=== PATIENT | female | born 1950 | race Caucasian/White ===

== ENCOUNTER 2016-10-16 12:53 | Emergency (ER) | payer MEDICARE, BC ==
[2016-10-16 13:16] VITALS: BP 154/74
[2016-10-16] MEDS ORDERED: Ketorolac 30 MG/ML SDV IM ONE (13:32)
--- NOTE | 2016-10-16 14:05 | EDM.PDOC ---
ED HPI GENERAL MEDICAL PROBLEM - General Chief Complaint: Back Pain or Injury Stated Complaint: FELL Time Seen by Provider: 10/16/16 13:32 Source of Information: Reports: Patient History Limitations: Reports: No Limitations - History of Present Illness INITIAL COMMENTS - FREE TEXT/NARRATIVE: This 66 yo female patient reports to the ED with right sided lower back pain and right lower rib pain. The patient reports she was cleaning the windows when she fell off the ladder (3-4 steps up on the ladder). The patient reports she initially fell on the concrete then hit her right lower ribs on the steps of the deck. The patient reports increased pain with deep breathing and moving about. The patient has not taken anything for her symptoms prior to reporting to the ED. Onset: Today, Sudden Duration: Hour(s):, Constant Location: Reports: Chest (right lower ribs posterior), Back (right lower back) Quality: Reports: Ache, Sharp Severity: Severe Improves with: Reports: Rest Worsens with: Reports: Movement Context: Reports: Other (fall from ladder) Associated Symptoms: Reports: No Other Symptoms Right Middle Back Pain Score (Numeric/FACES): 4 - Related Data Allergies Allergy/AdvReac Type Severity Reaction Status Date / Time cephalexin Allergy Rash Verified 10/16/16 13:01 Iodinated Contrast- Oral and Allergy Rash Verified 10/16/16 13:01 IV Dye [Iodinated Contrast Media - IV Dye] Home Meds: Home Meds Aspirin [Ecotrin] 325 mg PO DAILY 11/09/15 [History] Insulin Glarg,Human.Rec.Analog [LantUS Solostar] 50 units SUBCUT DAILY 11/09/15 [History] Metoprolol Tartrate [Lopressor] 100 mg PO BID 11/09/15 [History] Ramipril [Altace] 5 mg PO DAILY 11/09/15 [History] S-Adenosylmethionine Sul Tosyl [Pavan-E] 200 mg PO DAILY 11/09/15 [History] metFORMIN [Glucophage] 500 mg PO BID 11/09/15 [History] Etanercept [Enbrel] 50 mg SQ WEEKLY 10/16/16 [History] Levomefolate/B6/B12/Algal Oil [Metanx Capsule] 1 each PO DAILY 10/16/16 [History ] Triamterene/Hydrochlorothiazid [Triamterene-HCTZ 37.5-25 MG] 1 each PO DAILY [History] amLODIPine/atorvaSTATin [Amlodipine-Atorvast 10-40 mg] 1 each PO DAILY 10/16/16 [History] Past Medical History HEENT History: Reports: Cataract, Impaired Vision, Other (See Below) Other HEENT History: WEARS GLASSES Cardiovascular History: Reports: High Cholesterol, Hypertension Gastrointestinal History: Reports: Chronic Diarrhea, Irritable Bowel Syndrome Genitourinary History: Reports: None [employer] History: Reports: Musculoskeletal History: Reports: Arthritis, Osteoarthritis, RA Other Musculoskeletal History: LEFT FOOT PAIN; LEFT KNEE PAIN; LEFT HAND PAIN; RIGHT ARM PAIN - ALL DUE TO ARTHRITIS Endocrine/Metabolic History: Reports: Diabetes, Type II Hematologic History: Reports: Iron Deficiency, Other (See Below) Other Hematologic History: hyperhomocysteinemia Oncologic (Cancer) History: Reports: None Dermatologic History: Reports: Psoriasis - Infectious Disease History Infectious Disease History: Reports: Chicken Pox, Mumps, Rubella, Shingles - Past Surgical History HEENT Surgical History: Reports: Cataract Surgery, Eye Surgery, Other (See Below ) Respiratory Surgical History: Reports: None GI Surgical History: Reports: EGD, Other (See Below) Female Surgical History: Reports: Hysterectomy Neurological Surgical History: Reports: None Oncologic Surgical History: Reports: None Dermatological Surgical History: Reports: None Social & Family History - Tobacco Use Smoking Status *Q: Never Smoker - Caffeine Use Caffeine Use: Reports: Coffee, Soda, Tea - Alcohol Use Days Per Week of Alcohol Use: 1 Number of Drinks Per Day: 1 Total Drinks Per Week: 1 - Recreational Drug Use Recreational Drug Use: No Drug Use in Last 12 Months: No ED ROS GENERAL - Review of Systems Review Of Systems: ROS reveals no pertinent complaints other than HPI. ED EXAM,LOWER BACK PAIN/INJURY - Physical Exam Exam: See Below Exam Limited By: No Limitations General Appearance: Alert, WD/WN, Moderate Distress Eye Exam: Bilateral Eye: EOMI, Normal Inspection, PERRL Ears: Normal External Exam, Normal Canal, Hearing Grossly Normal, Normal TMs Nose: Normal Inspection, Normal Mucosa, No Blood Throat/Mouth: Normal Inspection, Normal Lips, Normal Teeth, Normal Gums, Normal Oropharynx, Normal Voice, No Airway Compromise Head: Atraumatic, Normocephalic Neck: Normal Inspection, Supple, Non-Tender, Full Range of Motion Respiratory/Chest: No Respiratory Distress, Lungs Clear, Normal Breath Sounds, No Accessory Muscle Use, Other (tenderness to the right posterior lower ribs) Cardiovascular: Normal Peripheral Pulses, Regular Rate, Rhythm, No Edema, No Gallop, No JVD, No Murmur, No Rub GI/Abdominal: Normal Bowel Sounds, Soft, Non-Tender, No Organomegaly, No Distention, No Abnormal Bruit, No Mass (Female) Exam: Deferred Rectal (Female) Exam: Deferred Back Exam: Paraspinal Tenderness (right), Vertebral Tenderness (lower back) Extremities: Normal Inspection, Normal Range of Motion, Non-Tender, No Pedal Edema, Normal Capillary Refill Neurological: Alert, Normal Mood/Affect, Normal Dorsiflexion, CN II-XII Intact, Normal Plantar Flexion, Normal Gait, Normal Reflexes, No Motor/Sensory Deficits , Oriented x 3 Psychiatric: Normal Affect, Normal Mood Skin Exam: Warm, Dry, Intact, Normal Color, No Rash Lymphatic: No Adenopathy Course - Vital Signs Last Recorded V/S: Last Vital Signs Temp 36.9 C 10/16/16 13:13 Pulse 77 10/16/16 13:13 Resp 18 10/16/16 13:13 BP 154/74 H 10/16/16 13:13 Pulse Ox 99 10/16/16 13:13 - Orders/Labs/Meds Orders: Active Orders 24 hr Category Date Time Status Lumbar Spine 2 or 3V [CR] Urgent Exams 10/16/16 13:33 Ordered Ribs 2V w Chest Rt [CR] Urgent Exams 10/16/16 13:33 Ordered Meds: Medications Discontinued Medications Generic Name Dose Route Start Last Admin Trade Name Cherie PRN Reason Stop Dose Admin Ketorolac Tromethamine 60 mg 10/16/16 13:32 10/16/16 13:37 Toradol IM 10/16/16 13:33 60 mg ONETIME ONE Administration Departure - Departure Time of Disposition: 15:02 Disposition: Home, Self-Care 01 Condition: Fair Clinical Impression: Low back strain Qualifiers: Encounter type: initial encounter Qualified Code(s): S39.012A - Strain of muscle, fascia and tendon of lower back, initial encounter Contusion of lower back Qualifiers: Encounter type: initial encounter Qualified Code(s): S30.0XXA - Contusion of lower back and pelvis, initial encounter - Discharge Information Instructions: Muscle Strain, [id number], Back Injury Prevention, [id number] Forms: ED Department Discharge Care Plan Goals: The patient was advised of the examination and x-ray results during the visit. The patient was given an injection of Toradol (60 mg) while in the ED. The patient was discharged with scripts for 1) Toradol (10 mg) #20 to take 1 by mouth every 6 hours, 2) Flexeril (10 mg) #20 to take 1 by mouth at bedtime as needed and 3) Paige (5/325) #10 to take 1 by mouth every 6 hours as needed for pain. If the patient has any additional symptoms or concerns, the patient should follow-up with her primary care facility or return to the emergency department. - My Orders Last 24 Hours: My Active Orders 10/16/16 13:33 Lumbar Spine 2 or 3V [CR] Urgent Ribs 2V w Chest Rt [CR] Urgent - Assessment/Plan Last 24 Hours: My Active Orders 10/16/16 13:33 Lumbar Spine 2 or 3V [CR] Urgent Ribs 2V w Chest Rt [CR] Urgent
== END 2016-10-16 15:09 | disposition home or self-care (01) ==
LOC: DL.ED 12:53
DX: S39.012A Strain of muscle, fascia and tendon of lower back, initial encounter (principal); S30.0XXA Contusion of lower back and pelvis, initial encounter; H54.7 Unspecified visual loss; E78.00 Pure hypercholesterolemia, unspecified; I10 Essential (primary) hypertension; M06.9 Rheumatoid arthritis, unspecified; E11.9 Type 2 diabetes mellitus without complications; L40.9 Psoriasis, unspecified; Z90.710 Acquired absence of both cervix and uterus; Z88.1 Allergy status to other antibiotic agents; Z91.041 Radiographic dye allergy status; Z79.82 Long term (current) use of aspirin; Z79.4 Long term (current) use of insulin; Z79.84 Long term (current) use of oral hypoglycemic drugs; W11.XXXA Fall on and from ladder, initial encounter
CPT/HCPCS: 71101; 72100; 96372; 99283; J1885

== ENCOUNTER 2024-09-17 23:08 | Emergency (ER) | payer MEDICARE, BC ==
[2024-09-17] MEDS ORDERED: Sodium Chloride 0.9% 10 ML Syringe FLUSH PRN (23:32)
[2024-09-17 23:37] LABS: BASOPHILS PERCENT AUTO 0.3 % (0.0-1.0); EOSINOPHILS PERCENT AUTO 23.3 % (1.0-3.0); HEMATOCRIT 35.2 % (37.0-47.0); HEMOGLOBIN 11.5 g/dL (12.0-16.0); LYMPHOCYTES PERCENT AUTO 20.5 % (20.5-50.1); MEAN CORPUSCULAR HEMOGLOBIN 32.2 pg (27.0-34.0); MEAN CORPUSCULAR HGB CONC 32.7 g/dL (33.0-35.0); MEAN CORPUSCULAR VOLUME 98.6 fL (80-100); MONOCYTES PERCENT AUTO 20.8 % (2-8); NEUTROPHILS PERCENT AUTO 35.1 % (42.2-75.2); PLATELET COUNT,PLT 199 10^3/uL (150-450); RED BLOOD CELL COUNT 3.57 10^6/uL (4.2-5.4); WHITE BLOOD CELL COUNT,WBC 3.2 10^3/uL (5.0-10.0)
[2024-09-17] MEDS: Dextrose 5%-0.45% NaCl 1,000 ML IV SCH (23:51)
[2024-09-17 23:55] LABS: LACTIC ACID 0.6 mmol/L (0.4-2.0)
[2024-09-17 23:56] LABS: ALBUMIN 2.7 g/dL (3.4-5.0); ANION GAP 8.2 mEq/L (7-13); BILIRUBIN TOTAL 0.3 mg/dL (0.2-1.0); BUN/CREATININE RATIO 21.5 (No establ ref range); CALCIUM 9.1 mg/dL (8.5-10.1); CREATININE 0.93 mg/dL (0.55-1.02); EST CRCL DRUG DOSING (CG) 36.96 mL/min; POTASSIUM,K 3.2 mmol/L (3.5-5.1)
[2024-09-17 23:58] LABS: A/G RATIO 0.82
[2024-09-18 00:39] LABS: APPEARANCE,URINE CLEAR (CLEAR); BILIRUBIN,URINE NEGATIVE (NEGATIVE); COLOR,URINE LIGHT YELLOW (YELLOW); GLUCOSE,URINE NEGATIVE (NEGATIVE); KETONES,URINE NEGATIVE (NEGATIVE); LEUKOCYTE ESTERASE,URINE NEGATIVE (NEGATIVE); NITRITE,URINE NEGATIVE (NEGATIVE); OCCULT BLOOD,URINE NEGATIVE (NEGATIVE); PROTEIN,URINE NEGATIVE (NEGATIVE); UROBILINOGEN,URINE 0.2 mg/dL (0.2-1.0)
[2024-09-18] MEDS: 50% Dextrose in Water 50 ML Syringe IVPUSH ONE (00:39)
[2024-09-18 03:29] VITALS: BP 137/57; PULSE 61
[2024-09-18] MEDS: Potassium Chloride 10 MEQ Tab.ER PO ONE (03:53)
== END 2024-09-18 04:00 ==
LOC: DL.ED 23:08
DX: E11.649 Type 2 diabetes mellitus with hypoglycemia without coma (principal); R00.1 Bradycardia, unspecified; R42 Dizziness and giddiness; E87.6 Hypokalemia; I10 Essential (primary) hypertension; M19.90 Unspecified osteoarthritis, unspecified site; E78.00 Pure hypercholesterolemia, unspecified; Z91.041 Radiographic dye allergy status; Z88.8 Allergy status to other drugs, medicaments and biological substances; Z79.82 Long term (current) use of aspirin; Z79.4 Long term (current) use of insulin; Z79.84 Long term (current) use of oral hypoglycemic drugs; Z79.899 Other long term (current) drug therapy; Z90.710 Acquired absence of both cervix and uterus
CPT/HCPCS: 36415; 71045; 80053; 81003; 82947; 83605; 84484; 85025; 93005; 93010; 96361; 96374; 99285; A9270; S5010

== ENCOUNTER 2024-12-20 18:29 | Emergency (ER) | payer MEDICARE, BC ==
[2024-12-20] MEDS ORDERED: Sodium Chloride 0.9% 10 ML Syringe FLUSH PRN (18:47)
[2024-12-20 18:51] LABS: APPEARANCE,URINE CLEAR (CLEAR); GLUCOSE,URINE 100 (NEGATIVE); OCCULT BLOOD,URINE NEGATIVE (NEGATIVE)
[2024-12-20 19:00] LABS: BASOPHILS PERCENT AUTO 0.3 % (0.0-1.0); EOSINOPHILS PERCENT AUTO 5.0 % (1.0-3.0); LYMPHOCYTES PERCENT AUTO 9.3 % (20.5-50.1); MONOCYTES PERCENT AUTO 13.7 % (2-8); NEUTROPHILS PERCENT AUTO 71.7 % (42.2-75.2); PLATELET COUNT,PLT 179 10^3/uL (150-450); RED BLOOD CELL COUNT 3.98 10^6/uL (4.2-5.4); WHITE BLOOD CELL COUNT,WBC 7.2 10^3/uL (5.0-10.0)
[2024-12-20 19:03] LABS: EPITHELIAL CELLS,URINE MODERATE /HPF (NOT SEEN)
[2024-12-20 19:22] LABS: ALANINE AMINOTRANSFERASE,ALT 12.0 U/L (14-59); ASPARTATE AMNIOTRANSFERASE,AST 13.0 U/L (15-37); BILIRUBIN TOTAL 0.4 mg/dL (0.2-1.0); BLOOD UREA NITROGEN,BUN 19.0 mg/dL (7-18); CARBON DIOXIDE,CO2 35.0 mmol/L (21-32); CREATININE 1.52 mg/dL (0.55-1.02); EST CRCL DRUG DOSING (CG) 23.76 mL/min; GLUCOSE RANDOM 350.0 mg/dL (70-99); POTASSIUM,K 2.9 mmol/L (3.5-5.1); PROTEIN TOTAL,TP 6.6 g/dL (6.4-8.2)
[2024-12-20 19:28] LABS: A/G RATIO 0.57; CHLORIDE,CL 96.0 mmol/L (98-107); ESTIMATED GFR 35.0 mL/min (>=60); SODIUM,NA 137.0 mmol/L (136-145)
[2024-12-20] MEDS: Potassium Chloride 10 MEQ Tab.ER PO ONE (19:36)
[2024-12-20 21:46] VITALS: BP 109/62; PULSE 60
== END 2024-12-20 20:30 | disposition home or self-care (01) ==
LOC: DL.ED 18:29
DX: E87.6 Hypokalemia (principal); E86.0 Dehydration; I10 Essential (primary) hypertension; E78.00 Pure hypercholesterolemia, unspecified; E11.9 Type 2 diabetes mellitus without complications; Z88.1 Allergy status to other antibiotic agents; Z91.041 Radiographic dye allergy status; Z79.82 Long term (current) use of aspirin; Z79.4 Long term (current) use of insulin; Z79.84 Long term (current) use of oral hypoglycemic drugs; Z79.899 Other long term (current) drug therapy; Z90.710 Acquired absence of both cervix and uterus
CPT/HCPCS: 36415; 70450; 72125; 80053; 81001; 83735; 85025; 86140; 96360; 99284; 99285; A9270; J7030